=== PATIENT | female | born 1960 | race Caucasian/White ===

== ENCOUNTER 2018-07-20 08:57 | Outpatient (CLI) | payer BC ==
--- NOTE | 2018-07-20 10:56 | MRI ---
EXAM: MRI Brain W WO Con PROVIDED CLINICAL HISTORY: Multiple sclerosis. Six-month follow-up evaluation. COMPARISON: 07/30/2016 FINDINGS: Multiple FLAIR and T2-weighted white matter signal hyperintensities are again seen within the periven tricular and subcortical white matter in a distribution most compatible with patient's history of a demyelinating process (multiple sclerosis). No new signal abnormalities are seen in the white matter. No abnormal areas of enhancement are seen to suggest an active demyelinating plaque. There is no evidence of an acute infarction. The septum pellucidum and third ventricle are in the midline. The ventricular system is normal in siz e, shape, and position. Appropriate flow voids are demonstrated at the base of the brain. The orbits, paranasal sinuses, skull base have a normal MRI appearance. IMPRESSION: 1. Numerous stable white matter signal hyperintensities as described above which are in a distributio n most compatible with patient's history of a demyelinating process (multiple sclerosis). There is no abnormal enhancement to suggest an active demyelinating plaque.
[2018-07-20] MEDS ORDERED: Gadobenate Dimeglumine 529 MG/1 ML (20ML VIAL) ONE (11:01)
== END 2018-07-20 08:58 | disposition home or self-care (01) ==
LOC: BICMRI 08:57
PROVIDERS: ATTEND Nurse Practitioner Acute Care
DX: G35 Multiple sclerosis (principal); H53.8 Other visual disturbances
CPT/HCPCS: 70553; 82565; A9577